=== PATIENT | female | born 1945 | race Caucasian/White ===

== ENCOUNTER → 2016-04-18 | Outpatient (CLI) | payer OTHER ==
--- NOTE | 2016-04-18 17:30 | MA ---
Screening Digital Mammogram Clinical Indications: Routine screening. Technique: Standard cephalocaudal and mediolateral oblique projections are obtained. This examinati on was processed by the [employer] computer aided detection system. Comparison: none available Breast density: C; The breast tissue is heterogeneously dense, which could obscure detection of small masses. Findings: CAD was reviewed. No suspicious findings are identified. Impression: Negative mammogram. BI-RADS 1. Recommendation: Routine screening is recommended in one year, as long as physical examination is radhika ign in this patient with moderately dense breast parenchyma. [facility] will send a result letter to the patient. Negative mammography should not preclude additional workup of a clinically suspicious finding. The patient's information is entered into a reminder system with a target due date for her next mammo gram.
--- NOTE | 2016-04-18 18:16 | DX ---
DEXA Bone Mineral Densitometry Clinical Indications: Postmenopausal, follow-up osteoporosis Comparison: February 25, 2015 Technique: Bone Mineral Densitometry (BMD) by [employer] Energy X-Ray Absorptiometry (DEXA) was performed utilizing the [employer] scanner. The lumbar spine was evaluated in the AP projection. The bilat eral hips and forearm were evaluated in the AP projection. Vertebral fracture assessment was also pe rformed. AP Lumbar Spine: The L1 only vertebral body was measured evaluated. L2-L4 are excluded due to degen erative sclerosis. BMD: 1.078 gm/cm2 T-score: -0.5 SD Z-score: 1.5 SD L1-L4 has significantly increased by 8%, likely related to degenerative sclerosis. AP Left Hip: Neck BMD: 0.756 gm/cm2 T-score: -2.0 SD Z-score: -0.1 SD No significant change in total BMD AP Right Hip: Neck BMD: 0.815 gm/cm2 T-score: -1.6 SD Z-score: 0.3 SD Total BMD is significantly increased by 5.4% which is likely related to degenerative change. AP Left Forearm, 03/27: BMD: 0.637 gm/cm2 T-score: -2.7 SD Z-score: -1.0 SD No significant change. Vertebral Fracture Assessment: No significant fracture deformity. Degenerative change in the lumbar spine likely increases lumbar BMD Conclusion: Considering the lowest measured site, the patient remains osteoporotic in the forearm. S elissa the forearm is the lowest measured site, it would be worthwhile to exclude hyperparathyroidism. The ten year FRAX risk for any major osteoporotic fracture , which excludes the risk for a wrist frac ture, is 17.8% and for a hip fracture is 3.5%. According to the recommendations of the [employer] Osteo por[employer], this patient would be a good candidate for bone strengthening pharmacologic inter vention. Consider excluding secondary metabolic causes of bone loss (reported to be present in as many as 30% of patients with normal Z scores). Basic laboratory evaluation might include blood chemistries (calci um, phosphorus, alkaline phosphatase, liver function tests, creatinine, total protein), complete bloo d count, serum 25-OH- vitamin D3 level, 24-hour urine calcium, serum TSH and serum PTH. Targeted l aboratory testing based on individual patient circumstances might include serum electrophoresis (SPEP or UPEP), anti-tissue transglutaminase antibody levels (celiac disease) , serum bone specific alkal ine phosphatase, bone turnover markers (urine, serum) or fibroblast growth factor 23 (FGF 23)(evaluat e for unexplained osteomalacia). If secondary causes are excluded, then consider initiating treatment with a bisphosphonate (such as F osamax, Actonel or Boniva). If the patient is unable to use an oral bisphosphonate, another agent suc h as IV bisphosphonates (Boniva or Reclast), teriparatide (Forteo), a selective estrogen receptor mo dulator (Evista) or Denosumab ( anti RANKL monoclonal antibody) might be considered. If antiresorptive therapy is initiated and if clinically indicated, consider obtaining a baseline and 3 month followup bone resorption marker (NTX, CTX, TRAP5b or Pyridinoline, deoxypyridinoline) to mon itor the therapeutic effect. Supplementing an insufficient diet to achieve total intakes of 1500 mg calcium and 800 International Units of vitamin D daily should be considered. Osteoporosis prevention and treatment begins by modify ing risk factors. The patient should be encouraged to participate in a regular exercise program that includes weightbearing and muscle strengthening regimens, as is clinically appropriate. Recommend follow-up DEXA in one year to assess the efficacy of pharmacologic intervention and/or chiqui ection of appropriate secondary cause.
== END ==
LOC: BRMIMAGING 13:04
PROVIDERS: ATTEND Family Medicine
DX: Z12.31 Encounter for screening mammogram for malignant neoplasm of breast (principal); M81.0 Age-related osteoporosis without current pathological fracture; Z78.0 Asymptomatic menopausal state
CPT/HCPCS: G0202

== ENCOUNTER → 2016-06-29 | Outpatient (CLI) | payer OTHER | LOC: FIMAGING 19:08 | PROVIDERS: ATTEND Family Medicine | DX: M17.11 Unilateral primary osteoarthritis, right knee (principal); M41.84 Other forms of scoliosis, thoracic region; M41.86 Other forms of scoliosis, lumbar region ==

== ENCOUNTER → 2016-12-17 | Outpatient (CLI) | payer OTHER | LOC: BHLMT 09:00 | PROVIDERS: ATTEND Internal Medicine Cardiovascular Disease | DX: R01.1 Cardiac murmur, unspecified (principal); R06.02 Shortness of breath; E78.00 Pure hypercholesterolemia, unspecified | CPT/HCPCS: 93005-PO ==

== ENCOUNTER → 2017-04-18 | Outpatient (CLI) | payer OTHER | LOC: BRMIMAGING 13:50 | PROVIDERS: ATTEND Family Medicine | DX: Z12.31 Encounter for screening mammogram for malignant neoplasm of breast (principal); Z13.820 Encounter for screening for osteoporosis; M81.0 Age-related osteoporosis without current pathological fracture ==

== ENCOUNTER → 2017-08-24 | Outpatient (CLI) | payer OTHER | LOC: BMCIMAGING 11:19 | PROVIDERS: ATTEND Emergency Medicine | DX: S50.11XA Contusion of right forearm, initial encounter (principal) ==

== ENCOUNTER → 2018-02-07 | Outpatient (CLI) | payer OTHER | LOC: BHCLAF 15:30 → BHFA 15:30 | PROVIDERS: ATTEND Nurse Practitioner Family | DX: Z01.810 Encounter for preprocedural cardiovascular examination (principal); I34.0 Nonrheumatic mitral (valve) insufficiency; E78.00 Pure hypercholesterolemia, unspecified | CPT/HCPCS: 93005-PO ==

== ENCOUNTER → 2018-06-17 | Outpatient (CLI) | payer OTHER | LOC: BHFA 15:30 | PROVIDERS: ATTEND Internal Medicine Cardiovascular Disease | DX: R01.1 Cardiac murmur, unspecified (principal) ==